=== PATIENT | male | born 1955 | race Caucasian/White ===

== ENCOUNTER 2018-06-16 13:30 | Emergency (ER) | payer MEDICARE, MEDICAID ==
[~2018-06-16] VITALS: Ht 172.7 cm; Wt 95.0 kg
[2018-06-16 14:23] LABS: BASOPHILS # (AUTO) 0.1 X10'3 (0-0.2); BASOPHILS % (AUTO) 0.9 % (0-1); EOSINOPHILS # (AUTO) 0.1 X10'3 (0-0.9); EOSINOPHILS % (AUTO) 1.4 % (0-6); HEMOGLOBIN 13.5 g/dl (14.0-17.9); LYMPHOCYTES % (AUTO) 32.8 % (21-51); MEAN CORPUSCULAR HEMOGLOBIN 32.3 PG (27.0-31.0); MEAN CORPUSCULAR HGB CONC 33.7 g/dL (33.0-36.5); MEAN CORPUSCULAR VOLUME 95.8 FL (78-98); MEAN PLATELET VOLUME 8.4 FL (7.4-10.4); MONOCYTES # (AUTO) 0.5 X10'3 (0-0.9); MONOCYTES % (AUTO) 8.5 % (2-12); NEUTROPHILS # (AUTO) 3.4 X10'3 (1.8-7.7); NEUTROPHILS % (AUTO) 56.4 % (42-75); PLATELET COUNT 186 X10'3 (140-440); RED BLOOD COUNT 4.18 X10'6 (4.70-6.10); RED CELL DISTRIBUTION WIDTH 15.3 % (11.5-14.5)
[2018-06-16 14:26] LABS: INR 1.2 INR
[2018-06-16 14:30] LABS: ALANINE AMINOTRANSFERASE 18 U/L (12-78); ALBUMIN 3.3 G/DL (3.4-5.0); ALBUMIN/GLOBULIN RATIO 0.9 (1.1-1.5); ALKALINE PHOSPHATASE 56 IU/L (46-116); ANION GAP 8 (8-16); ASPARTATE AMINO TRANSFERASE 22 U/L (10-37); BILIRUBIN,TOTAL 0.7 MG/DL (0.1-1.0); BLOOD UREA NITROGEN 12 MG/DL (7-18); BUN/CREATININE RATIO 9.8 (5.4-32.0); CALCIUM 8.7 MG/DL (8.5-10.1); CHLORIDE 106 MMOL/L (99-107); CREATININE 1.22 MG/DL (0.60-1.10); GLUCOSE 92 MG/DL (70-104); POTASSIUM 4.3 MMOL/L (3.5-5.1); SODIUM 142 MMOL/L (135-145); TOTAL PROTEIN 7.1 G/DL (6.4-8.2); eGFR 60 ML/MIN
[2018-06-16 14:36] LABS: MAGNESIUM 1.9 MG/DL (1.5-2.4)
[2018-06-16] MEDS ORDERED: carVEDilol 12.5mg tablet PO SCH (15:25)
[2018-06-16] MEDS ORDERED: furosemide 20MG tablet PO ONE (15:25)
[2018-06-16] MEDS ORDERED: carVEDilol 12.5mg tablet PO ONE (15:25)
[2018-06-16] MEDS ORDERED: lisinopril 10 MG tablet PO ONE (15:25)
[2018-06-16 15:30] VITALS: BP_DIAS 65
[2018-06-16 15:46] VITALS: BP_SYST 115
== END 2018-06-16 16:04 | disposition home or self-care (01) ==
LOC: ER 13:31
DX: T82.198A Other mechanical complication of other cardiac electronic device, initial encounter (principal); I48.91 Unspecified atrial fibrillation; I25.10 Atherosclerotic heart disease of native coronary artery without angina pectoris; I11.0 Hypertensive heart disease with heart failure; I50.9 Heart failure, unspecified; J44.9 Chronic obstructive pulmonary disease, unspecified; K21.9 Gastro-esophageal reflux disease without esophagitis; E03.9 Hypothyroidism, unspecified; F15.90 Other stimulant use, unspecified, uncomplicated; Z95.0 Presence of cardiac pacemaker; Z87.891 Personal history of nicotine dependence; Y83.8 Other surgical procedures as the cause of abnormal reaction of the patient, or of later complication, without mention of misadventure at the time of the procedure; Y92.89 Other specified places as the place of occurrence of the external cause
CPT/HCPCS: 36415; 71045; 80053; 83735; 83880; 84484; 85025; 85610; 93005; 99284

== ENCOUNTER 2018-06-20 08:45 | Inpatient (IN) | payer MEDICARE, MEDICAID ==
[~2018-06-20] VITALS: Ht 172.7 cm; Wt 102.5 kg
[2018-06-20] VITALS (10 sets, daily range): BP systolic 84–100; BP diastolic 51–66
[~2018-06-20 08:45] MED LIST: LIDOcaine 2% (20 mg/ml) 5ml cardiac syringe ONE; atropine 0.1mg/ml 10ml syringe ONE; calcium chloride 100 MG/1 ML inj IV ONE; epiNEPHrine 0.1mg/ml 10ml syringe ONE; etomidate 2mg/ml inj. ONE; sodium bicarbonate (8.4%) 1 mEq/ml syringe ONE
[2018-06-20] MEDS ORDERED: normal saline 1000ML IV soln IV ONE (08:55)
[2018-06-20] MEDS ORDERED: piperacillin/tazo 3.375gm/50ml 50 ML IV ONE (08:55)
--- NOTE | 2018-06-20 08:59 | NUR ---
Patient cold due to him living in car, patient given multiple warm blankets.
--- NOTE | 2018-06-20 09:08 | NUR ---
nursery technician at bedside.
--- NOTE | 2018-06-20 09:18 | NUR ---
Giving Primary RN a break. Dr Yepez in room to reassess the patient. Dr Yepez ordered fluids turned off and to call PICC RN to place PICC Line for dobutamine drip. MD noel with current BP of 95/35. Zosyn started.
[2018-06-20] MEDS ORDERED: ondansetron/PF 4mg/2ml inj IV ONE (09:30)
[2018-06-20] MEDS ORDERED: LORazepam 2 mg/ml vial IV ONE (09:30)
[2018-06-20 09:31] LABS: BASOPHILS # (AUTO) 0.1 X10'3 (0-0.2); BASOPHILS % (AUTO) 1.2 % (0-1); EOSINOPHILS % (AUTO) 0.5 % (0-6); HEMATOCRIT 43.2 % (42.0-52.0); HEMOGLOBIN 14.3 g/dl (14.0-17.9); LYMPHOCYTES # (AUTO) 2.2 X10'3 (1.1-4.8); LYMPHOCYTES % (AUTO) 28.8 % (21-51); MEAN CORPUSCULAR HEMOGLOBIN 32.2 PG (27.0-31.0); MEAN CORPUSCULAR HGB CONC 33.1 g/dL (33.0-36.5); MEAN CORPUSCULAR VOLUME 97.2 FL (78-98); MEAN PLATELET VOLUME 8.8 FL (7.4-10.4); MONOCYTES # (AUTO) 0.8 X10'3 (0-0.9); MONOCYTES % (AUTO) 10.2 % (2-12); NEUTROPHILS # (AUTO) 4.6 X10'3 (1.8-7.7); NEUTROPHILS % (AUTO) 59.3 % (42-75); PLATELET COUNT 188 X10'3 (140-440); RED BLOOD COUNT 4.45 X10'6 (4.70-6.10); RED CELL DISTRIBUTION WIDTH 15.7 % (11.5-14.5); WHITE BLOOD COUNT 7.8 X10'3 (4.5-11.0)
[2018-06-20 09:36] LABS: ABG BASE EXCESS -4.2 mmol/L (-2.0-3.0); ABG HCO3 18.4 mmol/L (22.0-26.0); ABG OXYGEN SATURATION 92.6 % (95-98); ABG PCO2 (T) 27.4 mmHg (35.0-48.0); ABG PH (T) 7.444 (7.350-7.450); ABG PO2 (T) 77.3 mmHg (83-108); ALLEN'S TEST Positive; FCOHb 0.7 % (0.5-1.5); FMetHb 0.2 % (0.3-1.12); FO2Hb 91.8 % (94-100); TOTAL HEMOGLOBIN 14.1 G/dl (14.0-18.0)
[2018-06-20 09:40] LABS: INR 1.4 INR; PARTIAL THROMBOPLASTIN TIME 27 SECONDS (22-32); PROTHROMBIN TIME 14.3 SECONDS (9.0-12.0)
[2018-06-20] MEDS ORDERED: iohexol 350MG/ML 100ml bottle IV ONE (09:40)
[2018-06-20] MEDS ORDERED: iohexol 350 MG/ML 50ML vial IV ONE (09:40)
[2018-06-20 09:42] LABS: ALANINE AMINOTRANSFERASE 183 U/L (12-78); ALBUMIN/GLOBULIN RATIO 0.8 (1.1-1.5); ALKALINE PHOSPHATASE 64 IU/L (46-116); ANION GAP 10 (8-16); ASPARTATE AMINO TRANSFERASE 241 U/L (10-37); BLOOD UREA NITROGEN 21 MG/DL (7-18); BUN/CREATININE RATIO 10.3 (5.4-32.0); CALCIUM 8.5 MG/DL (8.5-10.1); CHLORIDE 101 MMOL/L (99-107); CREATININE 2.04 MG/DL (0.60-1.10); GLUCOSE 101 MG/DL (70-104); SODIUM 136 MMOL/L (135-145); TOTAL CARBON DIOXIDE 24.7 MMOL/L (24-32); TOTAL PROTEIN 6.7 G/DL (6.4-8.2); eGFR 33 ML/MIN
--- NOTE | 2018-06-20 09:44 | NUR ---
xray and PICC line RN at bedside.
[2018-06-20 09:49] LABS: MAGNESIUM 1.8 MG/DL (1.5-2.4)
[2018-06-20 09:53] LABS: ETHANOL < 0.010 GM/DL (0.0-0.010); POTASSIUM 4.3 MMOL/L (3.5-5.1)
[2018-06-20] MEDS ORDERED: ipratropium/albuterol 3ml nebule NEB PRN (09:55)
[2018-06-20] MEDS ORDERED: HYDROcodone/acetaminophen 5mg/325mg tablet PO PRN (09:55)
[2018-06-20] MEDS ORDERED: potassium Cl 40MEQ/NS 500ml 500 ML IV PRN (09:55)
[2018-06-20] MEDS ORDERED: Neutra Phos packet PO PRN (09:55)
[2018-06-20] MEDS ORDERED: potassium Cl 20 mEq SR tablet PO PRN ×2 (09:55)
[2018-06-20] MEDS ORDERED: magnesium 4gm in 100ml NS 100 ML IV PRN (09:55)
[2018-06-20] MEDS ORDERED: sodium phosphate inj. 30 MMOL in dextrose 5%-water 250 ML IV PRN (09:55)
[2018-06-20] MEDS ORDERED: magnesium Cl slow-release 64mg tablet PO PRN (09:55)
[2018-06-20] MEDS ORDERED: ondansetron/PF 4mg/2ml inj IV PRN (09:55)
[2018-06-20] MEDS ORDERED: acetaminophen 325mg tablet PO PRN ×2 (09:55)
[2018-06-20] MEDS ORDERED: morphine 4 MG/ML inj SYRINge IV PRN ×2 (09:55)
[2018-06-20] MEDS ORDERED: magnesium 2GM in 50ml NS 50 ML IV PRN (09:55)
[2018-06-20] MEDS ORDERED: sodium phosphate inj. 15 MMOL in dextrose 5%-water 150 ML IV PRN (09:55)
--- NOTE | 2018-06-20 09:56 | NUR ---
PICC RN at bedside, inserting PICC line. Patient's mother outside room.
[2018-06-20] MEDS ORDERED: DOBUTamine-DoBUTrex 500mg/D5W 250 ML IV SCH (10:00)
[2018-06-20] MEDS ORDERED: DOBUTamine-DoBUTrex 500mg/D5W 250 ML IV ONE (10:25)
--- NOTE | 2018-06-20 10:28 | NUR ---
PICC line placed, repeat xray at bedside.
[2018-06-20 10:50] LABS: CLARITY,URINE CLEAR (Clear); COLOR,URINE YELLOW (Yellow); GLUCOSE, URINE NEGATIVE (Neg); KETONES,URINE NEGATIVE (Neg); LEUKOCYTE ESTERASE ,URINE NEGATIVE (Neg); NITRITES, URINE NEGATIVE (Neg); OCCULT BLOOD,URINE NEGATIVE (Neg); PH,URINE 5.5 (4.8-8.0); PROTEIN,URINE NEGATIVE (Neg); UROBILINOGEN,URINE 0.2 E.U/dL (0.2-1.0)
[2018-06-20 10:54] LABS: UA COLLECTION TYPE FOLEY CATH
[2018-06-20] MEDS: NORepinephrine 8mg/ 250ml NS 250 ML IV SCH (11:04)
[2018-06-20] MEDS ORDERED: LISI10TA4 PO (11:05)
[2018-06-20] MEDS ORDERED: FURO40TA4 PO (11:05)
[2018-06-20] MEDS ORDERED: LEVO125T8 PO (11:05)
[2018-06-20] MEDS ORDERED: CARV25TA2 PO (11:05)
[2018-06-20] MEDS ORDERED: TAMS0.4C32 PO (11:05)
[2018-06-20 11:15] LABS: URINE AMPHETAMINE SCREEN POSITIVE (Neg); URINE BARBITUATE SCREEN NEGATIVE (Neg); URINE BENZODIAZEPINES SCREEN NEGATIVE (Neg); URINE CANNABINOID SCREEN NEGATIVE (Neg); URINE COCAINE SCREEN NEGATIVE (Neg); URINE METHADONE SCREEN NEGATIVE (Neg); URINE OPIATE SCREEN NEGATIVE (Neg); URINE PHENCYCLIDINE SCREEN NEGATIVE (Neg)
--- NOTE | 2018-06-20 11:15 | NUR ---
Patient to CT on monitor and with RN.
[2018-06-20] MEDS: DOBUTamine-DoBUTrex 500mg/D5W 250 ML IV SCH (11:50)
--- NOTE | 2018-06-20 11:52 | NUR ---
PATIENT BACK FROM CT
--- NOTE | 2018-06-20 18:45 | NUR ---
Patient in room CICU 2008. I have received report from PROMISE Parks and had the opportunity to ask questions and assume patient care.
[2018-06-20] MEDS: docusate sod 100mg capsule PO SCH (20:18)
[2018-06-20] MEDS: levoTHYROXINE 125mcg tablet PO SCH (21:18)
[2018-06-21] VITALS (21 sets, daily range): BP systolic 75–105; BP diastolic 53–77
[2018-06-21 02:33] LABS: BASOPHILS % (AUTO) 0.4 % (0-1); EOSINOPHILS % (AUTO) 0 % (0-6); HEMATOCRIT 40.9 % (42.0-52.0); HEMOGLOBIN 13.7 g/dl (14.0-17.9); LYMPHOCYTES # (AUTO) 2.6 X10'3 (1.1-4.8); LYMPHOCYTES % (AUTO) 23.1 % (21-51); MEAN CORPUSCULAR HEMOGLOBIN 32.4 PG (27.0-31.0); MEAN CORPUSCULAR HGB CONC 33.5 g/dL (33.0-36.5); MEAN CORPUSCULAR VOLUME 96.6 FL (78-98); MEAN PLATELET VOLUME 9.3 FL (7.4-10.4); MONOCYTES # (AUTO) 1.3 X10'3 (0-0.9); MONOCYTES % (AUTO) 11.2 % (2-12); NEUTROPHILS # (AUTO) 7.3 X10'3 (1.8-7.7); NEUTROPHILS % (AUTO) 65.3 % (42-75); PLATELET COUNT 208 X10'3 (140-440); RED BLOOD COUNT 4.24 X10'6 (4.70-6.10); RED CELL DISTRIBUTION WIDTH 15.2 % (11.5-14.5); WHITE BLOOD COUNT 11.2 X10'3 (4.5-11.0)
[2018-06-21 02:48] LABS: ALBUMIN/GLOBULIN RATIO 0.8 (1.1-1.5); ALKALINE PHOSPHATASE 58 IU/L (46-116); ANION GAP 8 (8-16); BILIRUBIN,TOTAL 1.9 MG/DL (0.1-1.0); BLOOD UREA NITROGEN 26 MG/DL (7-18); BUN/CREATININE RATIO 13.1 (5.4-32.0); CALCIUM 8.2 MG/DL (8.5-10.1); CHLORIDE 98 MMOL/L (99-107); CREATININE 1.99 MG/DL (0.60-1.10); GLUCOSE 89 MG/DL (70-104); MAGNESIUM 1.6 MG/DL (1.5-2.4); PHOSPHORUS 5.2 MG/DL (2.3-4.5); POTASSIUM 4.6 MMOL/L (3.5-5.1); SODIUM 132 MMOL/L (135-145); TOTAL CARBON DIOXIDE 25.9 MMOL/L (24-32); TOTAL PROTEIN 6.7 G/DL (6.4-8.2); eGFR 34 ML/MIN
[2018-06-21 02:59] LABS: ALANINE AMINOTRANSFERASE 1045 U/L (12-78); ASPARTATE AMINO TRANSFERASE 1600 U/L (10-37)
[2018-06-21] MEDS: DOBUTamine-DoBUTrex 500mg/D5W 250 ML IV SCH ×2 (04:39→21:11)
--- NOTE | 2018-06-21 06:30 | NUR ---
Problems reprioritized. Patient report given, questions answered & plan of care reviewed with PROMISE Alberts.
--- NOTE | 2018-06-21 06:31 | NUR ---
Patient in room [facility] 2008. I have received report from Modesta and had the opportunity to ask questions and assume patient care. Addendum: 06/21/18 at 0632 by Virgilio Beasley RN Amended: Links added.
[2018-06-21] MEDS: docusate sod 100mg capsule PO SCH ×2 (08:00→20:00)
[2018-06-21] MEDS: levoTHYROXINE 125mcg tablet PO SCH (08:03)
[2018-06-21] MEDS: pantoprazole 40 MG vial IV SCH (08:05)
[2018-06-21] MEDS ORDERED: amiodarone/D5 360MG/200ML BAG 200 ML IV SCH (08:30)
[2018-06-21] MEDS: amiodarone/D5 360MG/200ML BAG 200 ML IV SCH ×3 (09:37→20:48)
--- NOTE | 2018-06-21 12:14 | NUR ---
BP 50's. Amio turned off, Levo increased. Charge nurse and Dr. Schmitt aware. Dr. Schmitt to come see pt. HARRISON and place femoral arterial line. ABG ordered.
[2018-06-21] MEDS: DOPamine 400mg/D5W 250ml 250 ML IV SCH (12:20)
--- NOTE | 2018-06-21 12:20 | NUR ---
Dr. Schmitt here to place femoral art. line.
[2018-06-21] MEDS ORDERED: DOPamine 400mg/D5W 250ml 250 ML IV ONE ×2 (12:23→16:59)
[2018-06-21] MEDS ORDERED: atropine 1 MG/1 ML vial IV ONE (12:30)
[2018-06-21 12:35] LABS: ABG PCO2 (T) 26.5 mmHg (35.0-48.0); ABG PO2 (T) 57.3 mmHg (83-108); FCOHb 0.5 % (0.5-1.5); FMetHb 0.1 % (0.3-1.12); FO2Hb 86.5 % (94-100); TOTAL HEMOGLOBIN 14.5 G/dl (14.0-18.0)
[2018-06-21] MEDS ORDERED: etomidate 2mg/ml inj. IV ONE (12:40)
[2018-06-21] MEDS ORDERED: midazolam 2 mg/2 ml injection IV ONE (12:43)
[2018-06-21] MEDS ORDERED: midazolam 2 mg/2 ml injection ONE ×2 (12:43→12:49)
[2018-06-21] MEDS ORDERED: epiNEPHrine inj 5 MG, calcium chloride inj. 1,000 MG in normal saline 250ml IV soln 235 ML IV PRN ×2 (12:45→12:50)
[2018-06-21] MEDS ORDERED: DOBUTamine-DoBUTrex 500mg/D5W 250 ML IV SCH (12:45)
[2018-06-21] MEDS ORDERED: MIDAZolam 5mg/ml 2ml vial IV ONE (12:50)
[2018-06-21] MEDS ORDERED: rocuronium 10mg/ml inj IV ONE (12:50)
[2018-06-21] MEDS ORDERED: iohexol 350MG/ML 100ml bottle IV ONE (12:52)
[2018-06-21] MEDS ORDERED: heparin 1,000unit/ml 10ml vial 10 ML ONE (12:52)
[2018-06-21] MEDS ORDERED: LIDOcaine 1% (10mg/ml)w/preservative injection 20ml MDV ONE ×2 (12:52→13:49)
--- NOTE | 2018-06-21 12:59 | NUR ---
Pt. to cath lab nurse after intubation.
[2018-06-21] MEDS ORDERED: dextrose 50%-water 50ml dispensing syringe IV ONE ×2 (15:14→16:59)
--- NOTE | 2018-06-21 16:00 | NUR ---
At approximately 1215 pt was restless and color was purple. Difficulty obtaining peripheral SPo2 measurement due to poor circulation and cool extremities. was notified and order for ABG obtained. Pt continued to decompensate and decision was made to place an arterial line and intubate. Intubation was delayed due to profound hypotension and pt was started on dopamine, epi-gerard and Levophed was increased to 20 mcg. Dopamine was maxed out at [address] Murphy was notified of pt's clinical changes and was taken to catheterization laboratory technician for emergent cardiac cath and balloon pump placement.
[2018-06-21 17:01] LABS: ABG BASE EXCESS -3.5 mmol/L (-2.0-3.0); ABG HCO3 20.3 mmol/L (22.0-26.0); ABG OXYGEN SATURATION 99.6 % (95-98); ABG PH (T) 7.406 (7.350-7.450); ABG PO2 (T) 297.5 mmHg (83-108); ALLEN'S TEST Positive; FCOHb 0.2 % (0.5-1.5); FMetHb 0.3 % (0.3-1.12); FO2Hb 99.1 % (94-100); PEEP 5 cm H2O; RESPIRATORY RATE 20 b/min; TIDAL VOLUME 500 mL; TOTAL HEMOGLOBIN 14.5 G/dl (14.0-18.0)
[2018-06-21] MEDS: milrinone (Primacor) 20mg/D5W 100 ML IV SCH (17:15)
--- NOTE | 2018-06-21 18:40 | NUR ---
Patient in room CICU 2007. I have received report from PROMISE Dodge and had the opportunity to ask questions and assume patient care.
[2018-06-21] MEDS: midazolam 100mg in NS 100ml 100 ML IV PRN (21:05)
[2018-06-21] MEDS: FENTANYL-0.9 % NACL/PF 100 ML IV PRN (21:06)
[2018-06-22] VITALS (24 sets, daily range): BP systolic 89–112; BP diastolic 57–79
[2018-06-22] MEDS: DOPamine 400mg/D5W 250ml 250 ML IV SCH ×3 (00:07→19:05)
[2018-06-22] MEDS: milrinone (Primacor) 20mg/D5W 100 ML IV SCH ×4 (00:07→19:47)
[2018-06-22 02:51] LABS: BASOPHILS % (AUTO) 0.4 % (0-1); EOSINOPHILS % (AUTO) 0.2 % (0-6); HEMATOCRIT 37.3 % (42.0-52.0); HEMOGLOBIN 12.6 g/dl (14.0-17.9); LYMPHOCYTES # (AUTO) 1.7 X10'3 (1.1-4.8); LYMPHOCYTES % (AUTO) 16.5 % (21-51); MEAN CORPUSCULAR HEMOGLOBIN 32.3 PG (27.0-31.0); MEAN CORPUSCULAR HGB CONC 33.8 g/dL (33.0-36.5); MEAN CORPUSCULAR VOLUME 95.6 FL (78-98); MEAN PLATELET VOLUME 8.3 FL (7.4-10.4); MONOCYTES # (AUTO) 1.1 X10'3 (0-0.9); MONOCYTES % (AUTO) 10.4 % (2-12); NEUTROPHILS # (AUTO) 7.5 X10'3 (1.8-7.7); NEUTROPHILS % (AUTO) 72.5 % (42-75); PLATELET COUNT 165 X10'3 (140-440); RED CELL DISTRIBUTION WIDTH 15.3 % (11.5-14.5); WHITE BLOOD COUNT 10.3 X10'3 (4.5-11.0)
[2018-06-22 03:05] LABS: ALANINE AMINOTRANSFERASE 890 U/L (12-78); ALBUMIN 2.7 G/DL (3.4-5.0); ALBUMIN/GLOBULIN RATIO 0.8 (1.1-1.5); ALKALINE PHOSPHATASE 55 IU/L (46-116); ANION GAP 7 (8-16); ASPARTATE AMINO TRANSFERASE 856 U/L (10-37); BILIRUBIN,TOTAL 1.9 MG/DL (0.1-1.0); BLOOD UREA NITROGEN 26 MG/DL (7-18); BUN/CREATININE RATIO 15.3 (5.4-32.0); CALCIUM 8.2 MG/DL (8.5-10.1); CHLORIDE 97 MMOL/L (99-107); GLUCOSE 129 MG/DL (70-104); INR 1.7 INR; MAGNESIUM 1.4 MG/DL (1.5-2.4); PARTIAL THROMBOPLASTIN TIME 28 SECONDS (22-32); PHOSPHORUS 2.6 MG/DL (2.3-4.5); POTASSIUM 3.6 MMOL/L (3.5-5.1); SODIUM 130 MMOL/L (135-145); TOTAL CARBON DIOXIDE 25.7 MMOL/L (24-32); TOTAL PROTEIN 6.1 G/DL (6.4-8.2); eGFR 41 ML/MIN
[2018-06-22] MEDS: amiodarone/D5 360MG/200ML BAG 200 ML IV SCH ×4 (03:49→19:44)
[2018-06-22 04:56] LABS: ABG BASE EXCESS 2.5 mmol/L (-2.0-3.0); ABG OXYGEN SATURATION 96.7 % (95-98); ABG PO2 (T) 88.1 mmHg (83-108); ALLEN'S TEST Positive; FCOHb 0.4 % (0.5-1.5); FMetHb 0.2 % (0.3-1.12); FO2Hb 96.1 % (94-100); MINUTE VOLUME 10 L/min; PATIENT TEMPERATURE 37.4; PEEP 5 cm H2O; RESPIRATORY RATE 20 b/min; RESPIRATORY RATE (OBSERVED) 20 b/min; TIDAL VOLUME 500 mL; TOTAL HEMOGLOBIN 13.5 G/dl (14.0-18.0)
--- NOTE | 2018-06-22 06:30 | NUR ---
Patient in room CICU 2008. I have received report from rose and had the opportunity to ask questions and assume patient care.
--- NOTE | 2018-06-22 06:31 | NUR ---
Problems reprioritized. Patient report given, questions answered & plan of care reviewed with PROMISE Singh.
--- NOTE | 2018-06-22 07:30 | NUR ---
dr lyman and dr chiang in- updated re hemodynamics and gtts. fentanyl and versed stopped to allow pt to awken and make decisions re his care.
[2018-06-22] MEDS ORDERED: dextrose 50%-water 50ml dispensing syringe IV PRN (07:55)
[2018-06-22] MEDS ORDERED: insulin glargine (Lantus) pen - multi-dose SQ PRN (07:55)
[2018-06-22] MEDS ORDERED: vancomycin/NS 1 GM ADD-VANTAGE 250 ML IV ONE (07:55)
[2018-06-22] MEDS ORDERED: MESSAGE TO NURSING PO ONE ×5 (07:55→10:00)
[2018-06-22] MEDS ORDERED: cefazolin/dext.iso 2gm/50ml 50 ML IV ONE (07:55)
[2018-06-22] MEDS ORDERED: insulin regular, human 100 UNIT in normal saline 100ml IV soln 100 ML IV SCH ×2 (07:55)
[2018-06-22] MEDS: levoTHYROXINE 125mcg tablet PO SCH (08:00)
[2018-06-22] MEDS ORDERED: mupirocin 2% nasal ointment 1gm UD NS SCH (08:00)
[2018-06-22] MEDS: pantoprazole 40 MG vial IV SCH (08:00)
[2018-06-22] MEDS: docusate sod 100mg capsule PO SCH ×2 (08:00→20:00)
[2018-06-22] MEDS ORDERED: metoprolol tartrate 12.5mg (1/2 tablet) PO SCH (08:00)
--- NOTE | 2018-06-22 08:53 | NUR ---
family at [facility]- updated. pre [facility] studies being done in case pt goes to [facility]. dr lyman contacted [facility] re call last night about potentional transfer. pt still not awke
[2018-06-22] MEDS ORDERED: furosemide 40mg/4ml inj IV ONE (08:55)
[2018-06-22] MEDS ORDERED: insulin Lispro (HumaLOG) vial - multi-dose SQ SCH (09:00)
[2018-06-22] MEDS: DOBUTamine-DoBUTrex 500mg/D5W 250 ML IV SCH (09:05)
[2018-06-22] MEDS ORDERED: bisacodyl 10mg suppository rectal RC PRN (09:55)
[2018-06-22] MEDS ORDERED: lactulose 20gm/30ml cup PO PRN (09:55)
[2018-06-22] MEDS: NORepinephrine 8mg/ 250ml NS 250 ML IV SCH (10:00)
--- NOTE | 2018-06-22 11:35 | NUR ---
there is a bed available at [facility]. awaiting dr lyman to speak with family re tx to [facility]. able to decrease dopamine and epical
[2018-06-22 12:23] LABS: CLARITY,URINE CLOUDY (Clear); COLOR,URINE YELLOW (Yellow); GLUCOSE, URINE NEGATIVE (Neg); KETONES,URINE NEGATIVE (Neg); LEUKOCYTE ESTERASE ,URINE NEGATIVE (Neg); NITRITES, URINE NEGATIVE (Neg); OCCULT BLOOD,URINE LARGE (Neg); PROTEIN,URINE TRACE mg/dl (Neg); UROBILINOGEN,URINE 0.2 E.U/dL (0.2-1.0)
[2018-06-22 12:24] LABS: UA COLLECTION TYPE FOLEY CATH
[2018-06-22 12:34] LABS: MUCUS STRANDS FEW /LPF (Neg); SQUAMOUS EPITHELIAL CELL,UR FEW /LPF (FEW); URIC ACID CRYSTALS 4+ /HPF (NEGATIVE)
[2018-06-22 12:36] LABS: BACTERIA,URINE 1+ /HPF (Neg); RBC,URINE 50-100 /HPF (0-2); WBC,URINE 0-4 /HPF (0-4)
--- NOTE | 2018-06-22 14:15 | NUR ---
iabp to 1: 2, dobutamine titrating down - ci 3.4 awaiting transport
--- NOTE | 2018-06-22 15:00 | NUR ---
ci to 2- discussed with birdie villagran- dobutamine off, iabp back to 1:1, primacor up to max, when iabp back to 1:2- ci at 2.7. pa pressures up to 50's with dobutamine off.awaiting transport time
[2018-06-22 16:22] LABS: MAGNESIUM 1.7 MG/DL (1.5-2.4); POTASSIUM 3.4 MMOL/L (3.5-5.1)
[2018-06-22] MEDS ORDERED: potassium Cl 40MEQ/250ML bag 250 ML IV PRN (16:45)
--- NOTE | 2018-06-22 18:30 | NUR ---
call to dr lyman re- pt not going til am as [facility] did not want to accept him that late as would leave with reach at 1900. dr lyman notified and also that pa waveform is questionable venticular- advanced by 5 cm to 85 by charge nurse. cxr ordered and done bed will be saved at [facility]. will make warp dyeing vat tender aware and family
--- NOTE | 2018-06-22 19:02 | NUR ---
after repeated calls from [facility] and [facility]- [facility] has agreed to time of 1900, but [facility] will not accept til am.
[2018-06-22] MEDS: midazolam 100mg in NS 100ml 100 ML IV PRN (19:04)
[2018-06-22] MEDS: potassium Cl 40MEQ/250ML bag 250 ML IV PRN (19:45)
--- NOTE | 2018-06-22 22:00 | NUR ---
PA line w/ventricular wave form, repositoned twice per protocol w/followup xray; initally PA at 80cm now at 98cm w/improved waveform and PA pressures (60/18) instead of 55/4. Dr.Mazur christie.
[2018-06-23] VITALS (7 sets, daily range): BP systolic 99–115; BP diastolic 59–70
[2018-06-23] MEDS: amiodarone/D5 360MG/200ML BAG 200 ML IV SCH (00:34)
[2018-06-23] MEDS: milrinone (Primacor) 20mg/D5W 100 ML IV SCH ×2 (00:34→05:04)
[2018-06-23 03:23] LABS: BASOPHILS # (AUTO) 0.1 X10'3 (0-0.2); BASOPHILS % (AUTO) 0.6 % (0-1); EOSINOPHILS % (AUTO) 0 % (0-6); HEMATOCRIT 36.3 % (42.0-52.0); HEMOGLOBIN 12.3 g/dl (14.0-17.9); LYMPHOCYTES # (AUTO) 1.1 X10'3 (1.1-4.8); LYMPHOCYTES % (AUTO) 10.6 % (21-51); MEAN CORPUSCULAR HEMOGLOBIN 32.2 PG (27.0-31.0); MEAN CORPUSCULAR HGB CONC 33.8 g/dL (33.0-36.5); MEAN CORPUSCULAR VOLUME 95.2 FL (78-98); MEAN PLATELET VOLUME 8.1 FL (7.4-10.4); MONOCYTES % (AUTO) 10.2 % (2-12); NEUTROPHILS # (AUTO) 7.9 X10'3 (1.8-7.7); NEUTROPHILS % (AUTO) 78.6 % (42-75); PLATELET COUNT 154 X10'3 (140-440); RED BLOOD COUNT 3.82 X10'6 (4.70-6.10); RED CELL DISTRIBUTION WIDTH 14.9 % (11.5-14.5)
[2018-06-23 03:32] LABS: ALANINE AMINOTRANSFERASE 554 U/L (12-78); ALBUMIN 2.5 G/DL (3.4-5.0); ALBUMIN/GLOBULIN RATIO 0.8 (1.1-1.5); ALKALINE PHOSPHATASE 51 IU/L (46-116); ANION GAP 5 (8-16); ASPARTATE AMINO TRANSFERASE 359 U/L (10-37); BILIRUBIN,TOTAL 2.1 MG/DL (0.1-1.0); BLOOD UREA NITROGEN 13 MG/DL (7-18); BUN/CREATININE RATIO 12.9 (5.4-32.0); CALCIUM 7.7 MG/DL (8.5-10.1); CHLORIDE 101 MMOL/L (99-107); CREATININE 1.01 MG/DL (0.60-1.10); GLUCOSE 122 MG/DL (70-104); MAGNESIUM 1.7 MG/DL (1.5-2.4); POTASSIUM 3.4 MMOL/L (3.5-5.1); SODIUM 131 MMOL/L (135-145); TOTAL PROTEIN 5.8 G/DL (6.4-8.2); eGFR 75 ML/MIN
[2018-06-23 03:40] LABS: ABG BASE EXCESS 3.6 mmol/L (-2.0-3.0); ABG OXYGEN SATURATION 92.3 % (95-98); ABG PCO2 (T) 37.4 mmHg (35.0-48.0); ABG PH (T) 7.478 (7.350-7.450); ABG PO2 (T) 63.9 mmHg (83-108); ALLEN'S TEST Positive; FCOHb 0.5 % (0.5-1.5); FMetHb 0.3 % (0.3-1.12); FO2Hb 91.6 % (94-100); MINUTE VOLUME 10 L/min; PATIENT TEMPERATURE 37.3; PEEP 5 cm H2O; RESPIRATORY RATE 16 b/min; RESPIRATORY RATE (OBSERVED) 19 b/min; TIDAL VOLUME 500 mL; TOTAL HEMOGLOBIN 13.3 G/dl (14.0-18.0)
[2018-06-23] MEDS: FENTANYL-0.9 % NACL/PF 100 ML IV PRN (03:51)
[2018-06-23] MEDS: potassium Cl 40MEQ/250ML bag 250 ML IV PRN (04:30)
[2018-06-23] MEDS: DOPamine 400mg/D5W 250ml 250 ML IV SCH (05:05)
[2018-06-23] MEDS ORDERED: K and/or MAG REPLACEMENT MC SCH (08:00)
== END 2018-06-23 07:30 | disposition short-term general hospital (02) | DRG 270 ==
LOC: ER 08:45 → CICU 2S 09:52 → ER 09:53 → CICU 2S 09:53 → CMPBEDREQ 19:43
PROVIDERS: ADMIT Internal Medicine Critical Care Medicine; ATTEND Internal Medicine Critical Care Medicine
PROC: B3251ZZ Computerized Tomography (CT Scan) of Bilateral Common Carotid Arteries using Low Osmolar Contrast (ICD-10-PCS; 2018-06-20)
PROC: B32G1ZZ Computerized Tomography (CT Scan) of Bilateral Vertebral Arteries using Low Osmolar Contrast (ICD-10-PCS; 2018-06-20)
PROC: B3201ZZ Computerized Tomography (CT Scan) of Thoracic Aorta using Low Osmolar Contrast (ICD-10-PCS; 2018-06-20)
PROC: B32S1ZZ Computerized Tomography (CT Scan) of Right Pulmonary Artery using Low Osmolar Contrast (ICD-10-PCS; 2018-06-20)
PROC: B32T1ZZ Computerized Tomography (CT Scan) of Left Pulmonary Artery using Low Osmolar Contrast (ICD-10-PCS; 2018-06-20)
PROC: B3281ZZ Computerized Tomography (CT Scan) of Bilateral Internal Carotid Arteries using Low Osmolar Contrast (ICD-10-PCS; 2018-06-20)
PROC: 02HV33Z Insertion of Infusion Device into Superior Vena Cava, Percutaneous Approach (ICD-10-PCS; 2018-06-20)
PROC: 5A1945Z Respiratory Ventilation, 24-96 Consecutive Hours (ICD-10-PCS; principal; 2018-06-21)
PROC: 5A02210 Assistance with Cardiac Output using Balloon Pump, Continuous (ICD-10-PCS; 2018-06-21)
PROC: 0BH17EZ Insertion of Endotracheal Airway into Trachea, Via Natural or Artificial Opening (ICD-10-PCS; 2018-06-21)
PROC: 4A023N7 Measurement of Cardiac Sampling and Pressure, Left Heart, Percutaneous Approach (ICD-10-PCS; 2018-06-21)
PROC: B2111ZZ Fluoroscopy of Multiple Coronary Arteries using Low Osmolar Contrast (ICD-10-PCS; 2018-06-21)
PROC: B2151ZZ Fluoroscopy of Left Heart using Low Osmolar Contrast (ICD-10-PCS; 2018-06-21)
PROC: 04HY32Z Insertion of Monitoring Device into Lower Artery, Percutaneous Approach (ICD-10-PCS; 2018-06-21)
PROC: 4A133B1 Monitoring of Arterial Pressure, Peripheral, Percutaneous Approach (ICD-10-PCS; 2018-06-21)
PROC: 4A133J1 Monitoring of Arterial Pulse, Peripheral, Percutaneous Approach (ICD-10-PCS; 2018-06-21)
DX: I21.A1 Myocardial infarction type 2 (principal); I50.23 Acute on chronic systolic (congestive) heart failure; R57.0 Cardiogenic shock; J96.01 Acute respiratory failure with hypoxia; N17.9 Acute kidney failure, unspecified; I13.0 Hypertensive heart and chronic kidney disease with heart failure and stage 1 through stage 4 chronic kidney disease, or unspecified chronic kidney disease; I42.7 Cardiomyopathy due to drug and external agent; N18.3 Chronic kidney disease, stage 3 (moderate); R56.9 Unspecified convulsions; E03.9 Hypothyroidism, unspecified; R74.0 Nonspecific elevation of levels of transaminase and lactic acid dehydrogenase [LDH]; F15.90 Other stimulant use, unspecified, uncomplicated; F17.210 Nicotine dependence, cigarettes, uncomplicated; I08.1 Rheumatic disorders of both mitral and tricuspid valves; I25.10 Atherosclerotic heart disease of native coronary artery without angina pectoris; I48.91 Unspecified atrial fibrillation; J44.9 Chronic obstructive pulmonary disease, unspecified; K21.9 Gastro-esophageal reflux disease without esophagitis; Z95.5 Presence of coronary angioplasty implant and graft; Z95.0 Presence of cardiac pacemaker; Z79.899 Other long term (current) drug therapy; Z71.51 Drug abuse counseling and surveillance of drug abuser; Z71.6 Tobacco abuse counseling
CPT/HCPCS: 33967; 36415; 36573; 36600; 70450; 70496; 70498; 71045; 76937; 80053; 80305; 80320; 81001; 81003; 82150; 82803; 82948; 83036; 83605; 83690; 83721; 83735; 83880; 84100; 84132; 84145; 84439; 84443; 84484; 85018; 85025; 85610; 85730; 86885; 86900; 86901; 86920; 87040; 87070; 93005; 93306; 93308; 93458; 93880; 93970; 94002; 94003; 94760; 96365; 96375; 97161; 97530; 99152; 99153; 99285; A6257; C1725; C1769; C1894; C9113; G0378; J0171; J0461; J1250; J1265; J1644; J1940; J2001; J2060; J2250; J2260; J2405; J2543; J3475; J3480; J3490; J7030; Q9967

== ENCOUNTER 2019-05-25 19:47 | Emergency (ER) | payer MEDICARE, MEDICAID ==
[~2019-05-25] VITALS: Ht 172.7 cm; Wt 104.0 kg
[~2019-05-25 19:47] MED LIST changes: +CARV25TA2 PO; +FURO40TA4 PO; +LEVO125T8 PO; -LIDOcaine 2% (20 mg/ml) 5ml cardiac syringe ONE; +LISI10TA4 PO; +TAMS0.4C32 PO; -atropine 0.1mg/ml 10ml syringe ONE; -calcium chloride 100 MG/1 ML inj IV ONE; -epiNEPHrine 0.1mg/ml 10ml syringe ONE; -etomidate 2mg/ml inj. ONE; -sodium bicarbonate (8.4%) 1 mEq/ml syringe ONE
--- NOTE | 2019-05-25 20:15 | NUR ---
he has lower extremity edema past 5 days that is new. Ordered a BNP.
[2019-05-25 20:30] LABS: PARTIAL THROMBOPLASTIN TIME 30 SECONDS (22-32)
[2019-05-25 20:31] LABS: ALANINE AMINOTRANSFERASE 24 U/L (12-78); ALBUMIN 3.5 G/DL (3.4-5.0); ALBUMIN/GLOBULIN RATIO 0.8 (1.1-1.5); ALKALINE PHOSPHATASE 84 IU/L (46-116); ANION GAP 6 (8-16); ASPARTATE AMINO TRANSFERASE 28 U/L (10-37); BILIRUBIN,TOTAL 1.2 MG/DL (0.1-1.0); BLOOD UREA NITROGEN 22 MG/DL (7-18); BUN/CREATININE RATIO 14.8 (5.4-32.0); CHLORIDE 103 MMOL/L (99-107); CREATININE 1.49 MG/DL (0.60-1.10); GLUCOSE 101 MG/DL (70-104); POTASSIUM 4.2 MMOL/L (3.5-5.1); SODIUM 140 MMOL/L (135-145); TOTAL CARBON DIOXIDE 30.8 MMOL/L (24-32); eGFR 48 ML/MIN
[2019-05-25 20:32] LABS: BASOPHILS # (AUTO) 0.1 X10'3 (0-0.2); BASOPHILS % (AUTO) 1.2 % (0-1); EOSINOPHILS # (AUTO) 0.1 X10'3 (0-0.9); EOSINOPHILS % (AUTO) 0.7 % (0-6); HEMATOCRIT 48.5 % (42.0-52.0); LYMPHOCYTES # (AUTO) 2.1 X10'3 (1.1-4.8); LYMPHOCYTES % (AUTO) 28.7 % (21-51); MEAN CORPUSCULAR HEMOGLOBIN 30.6 PG (27.0-31.0); MEAN CORPUSCULAR HGB CONC 33.1 g/dL (33.0-36.5); MEAN CORPUSCULAR VOLUME 92.5 FL (78-98); MEAN PLATELET VOLUME 8.6 FL (7.4-10.4); MONOCYTES # (AUTO) 0.9 X10'3 (0-0.9); MONOCYTES % (AUTO) 11.7 % (2-12); NEUTROPHILS # (AUTO) 4.3 X10'3 (1.8-7.7); NEUTROPHILS % (AUTO) 57.7 % (42-75); PLATELET COUNT 226 X10'3 (140-440); RED BLOOD COUNT 5.25 X10'6 (4.70-6.10); RED CELL DISTRIBUTION WIDTH 15.8 % (11.5-14.5); WHITE BLOOD COUNT 7.4 X10'3 (4.5-11.0)
--- NOTE | 2019-05-25 20:38 | NUR ---
HE IS AWAITING LAB TESTS VISITING WITH HIS SON, ASH.
[2019-05-25] MEDS ORDERED: carVEDilol 12.5mg tablet PO ONE (22:10)
[2019-05-25] MEDS ORDERED: carVEDilol 12.5mg tablet PO SCH (22:10)
[2019-05-25] MEDS ORDERED: furosemide 10 MG/1 ML 10ml inj IV ONE (22:15)
[2019-05-25] MEDS ORDERED: magnesium oxide 400mg tablet PO ONE (22:15)
[2019-05-25] MEDS ORDERED: nitroGLYCERIN 0.2mg/hour patch TD ONE (22:15)
[2019-05-25 22:31] LABS: MAGNESIUM 2.2 MG/DL (1.5-2.4)
--- NOTE | 2019-05-25 22:31 | NUR ---
informed Dr Maradiaga I was holding off on NTG patch as bp S 110. He states that is fine.
[2019-05-25] MEDS ORDERED: EPLE25TA4 PO (22:39)
[2019-05-25] MEDS ORDERED: SACU1TAB PO (22:39)
[2019-05-25] MEDS ORDERED: DIGO125T PO (22:39)
[2019-05-25] MEDS ORDERED: CARV-50 PO (22:39)
[2019-05-25] MEDS ORDERED: AMIO200T61 PO (22:39)
[2019-05-25] MEDS ORDERED: APIX5TAB3 PO (22:39)
[2019-05-25] MEDS ORDERED: FURO-150 PO (23:08)
[2019-05-25] MEDS ORDERED: zolpidem 5mg tablet PO ONE (23:10)
[2019-05-25 23:18] VITALS: BP 108/64
== END 2019-05-25 23:19 | disposition home or self-care (01) ==
LOC: ER 19:48
DX: I50.9 Heart failure, unspecified (principal); R94.31 Abnormal electrocardiogram [ECG] [EKG]; G47.00 Insomnia, unspecified; I48.91 Unspecified atrial fibrillation; I25.10 Atherosclerotic heart disease of native coronary artery without angina pectoris; I11.0 Hypertensive heart disease with heart failure; J44.9 Chronic obstructive pulmonary disease, unspecified; K21.9 Gastro-esophageal reflux disease without esophagitis; E03.9 Hypothyroidism, unspecified; Z95.0 Presence of cardiac pacemaker; Z79.01 Long term (current) use of anticoagulants; Z79.899 Other long term (current) drug therapy
CPT/HCPCS: 36415; 71046; 80053; 83735; 83880; 84484; 85025; 85610; 85730; 93005; 96374; 99285; J1940